=== PATIENT | female | born 1985 | race American Indian/Alaskan Native ===

== ENCOUNTER 2016-10-01 19:54 | Emergency (ER) | payer MEDICAID ==
--- NOTE | 2016-10-01 20:55 | Emergency Department Report ---
HPI - General Chief Complaint: Upper Respiratory Infection Time Seen by Provider: 10/01/16 20:47 - HPI HPI: Patient here reports that she has cough and flulike symptoms for 2 days. She says she took Tylenol cold and flu yesterday with no relief. Denies any fever. Reports body aches at 5 out of 10. Denies any nausea vomiting. Denies any shortness of breath or chest pain. ED Past Medical Hx - Past Medical History Previous Medical History?: Yes - Surgical History Past Surgical History?: Yes Additional Surgical History: hernia repair - Family History Family history: no significant - Social History Smoking Status: Never Smoker Substance Use Type: Alcohol, Non Opiate Pain - Medications Home Medications: Home Medications Medication Instructions Recorded Confirmed Last Taken Type Doxylamine/Pyridoxine HCl 1 each PO Q6HR PRN #30 tablet. 02/14/16 Unknown Rx [Dicarsalan Dr 10-10 mg Tablet] Sonia Root [Sonia] 250 mg PO QID PRN #30 capsule 02/14/16 Unknown Rx Oseltamivir [Tamiflu] 75 mg PO BID #10 cap 10/01/16 Unknown Rx guaiFENesin/CODEINE [Robitussin AC] 10 ml PO Q6H PRN #200 oral.liqd 10/01/16 Unknown Rx ED Review of Systems ROS: Stated complaint: COUGH Other details as noted in HPI Comment: All other systems reviewed and negative Constitutional: chills. denies: fever, weakness Eyes: denies: eye pain ENT: congestion. denies: ear pain, throat pain Respiratory: cough. denies: shortness of breath, SOB with exertion, SOB at rest , stridor, wheezing Cardiovascular: denies: chest pain, palpitations, edema, syncope Gastrointestinal: denies: abdominal pain, nausea, diarrhea, constipation Musculoskeletal: arthralgia. denies: back pain, joint swelling Skin: denies: rash Neurological: headache. denies: numbness, paresthesias, confusion, abnormal gait, vertigo Physical Exam - Physical Exam Vital Signs: Vital Signs 10/01/16 20:01 Temperature 98.5 F Pulse Rate 106 H Respiratory 18 Rate Blood Pressure 138/100 O2 Sat by Pulse 100 Oximetry General: This is a 31-year-old female well-nourished well-developed nontoxic in appearance. Physical Exam: Head: Normocephalic atraumatic Mouth: Moist, no pharyngeal exudate or erythema. Uvula is midline and oral airway is patent. No gingival enlargement or dental tenderness. No facial swelling. No peritonsillar abscesses. Neck: Supple, no C-spine tenderness, no tracheal deviation. Nontender to palpate. no adenopathy Ears: Bilateral TMs congested without erythema .bilateral EAC without any redness swelling or drainage Eyes: Bilateral pupils equal and reactive to light, bilateral EOM intact. Bilateral sclera and conjunctiva without injection. Normal accommodation Nose: Mucosa moist, positive congestion with erythema. Positive clear drainage. maxillary and frontal sinus non-tender to palpate. Lungs: clear to auscultate bilaterally no rhonchi wheezes or rales. Normal work of breathing extremity; No CCE. +2 pulses. No neurovascular compromise Cardiovascular: S1-S2, mild tachycardia 106, regular rhythm. No murmurs. Skin: clean Dry and intact no rash no lesions Psych: Normal mood and behavior ED Course Vital Signs 10/01/16 20:01 Temperature 98.5 F Pulse Rate 106 H Respiratory 18 Rate Blood Pressure 138/100 O2 Sat by Pulse 100 Oximetry - Reevaluation(s) Reevaluation #1: 10/01/16 22:30 Patient received Decadron 8 mg IM and emergency room. ED Medical Decision Making - Lab Data Influenza A positive - Medical Decision Making ED course: I discussed results of flu test with patient and informed her that she is positive for influenza A. I discussed treatment plan and she wants to take Tamiflu. Patient discharged home with prescription for Tamiflu and guaifenesin with codeine. She says she has Motrin at home so she will take that for bodyache. Critical care attestation.: If time is entered above; I have spent that time in minutes in the direct care of this critically ill patient, excluding procedure time. ED Disposition Clinical Impression: Influenza A, Cough Arthralgia Qualifiers: Joint pain location: unspecified Qualified Code(s): M25.50 - Pain in unspecified joint Disposition: DISCHARGED TO HOME OR SELFCARE Is pt being admited?: No Does the pt Need Aspirin: No Condition: Stable Instructions: Influenza (ED), Acute Cough (ED) Additional Instructions: Please rest. Take vitamin C and drink plenty of fluid. Please practice good hand hygiene. Please take medication as prescribed Cough medicine can cause drowsiness so please do not drive or operate any heavy machinery while taking this medication. Prescriptions: guaiFENesin/CODEINE [Robitussin AC] 10 ml PO Q6H PRN #200 oral.liqd PRN Reason: Cough Oseltamivir [Tamiflu] 75 mg PO BID #10 cap Referrals: PRIMARY CARE, [Primary Care Provider] - 3-5 Days Forms: Work/School Release Form(ED)
[2016-10-01] MEDS ORDERED: DECADRON IM STA (21:06)
[2016-10-02 01:47] VITALS: BP 130/94
== END 2016-10-01 22:36 | disposition home or self-care (01) ==
LOC: ED 19:54
DX: J09.X2 Influenza due to identified novel influenza A virus with other respiratory manifestations (principal); M25.50 Pain in unspecified joint; R05 Cough
CPT/HCPCS: 87400; 96372; 99282; J1100

== ENCOUNTER 2018-11-15 06:49 | Emergency (ER) | payer BC ==
[2018-11-15 07:29] LABS: Basophils % (Auto) 0.5 % (0.0-1.8); Eosinophils # (Auto) 0.2 K/mm3 (0.0-0.4); Eosinophils % (Auto) 2.9 % (0.0-4.3); Hematocrit 32.1 % (30.3-42.9); Hemoglobin 10.5 gm/dl (10.1-14.3); Lymphocytes # (Auto) 2.4 K/mm3 (1.2-5.4); Lymphocytes % (Auto) 32.3 % (13.4-35.0); Mean Corpuscular HGB Conc 33 % (30-34); Mean Corpuscular Volume 81 fl (79-97); Monocytes # (Auto) 0.4 K/mm3 (0.0-0.8); Monocytes % (Auto) 4.8 % (0.0-7.3); Platelet Count 267 K/mm3 (140-440); Red Blood Count 3.94 M/mm3 (3.65-5.03); Red Cell Distribution Width 16.6 % (13.2-15.2)
[2018-11-15 07:46] LABS: BUN/Creatinine Ratio 17; Blood Urea Nitrogen 12 mg/dL (7-17); Calcium 8.3 mg/dL (8.4-10.2); Hemolysis Index 8
--- NOTE | 2018-11-15 07:58 | Emergency Department Report ---
ED Chest Pain HPI - General Chief Complaint: Chest Pain Stated Complaint: CHEST PAIN Time Seen by Provider: 11/15/18 07:49 Source: patient Mode of arrival: Ambulatory Limitations: No Limitations - History of Present Illness Initial Comments: 33-year-old female presents to ED with complaint of right-sided chest pain 4 days. Patient states pain is a dull, nonradiating pain. Denies pleuritic component. States pain is worse when she moves in certain positions. Patient denies fever, cough, shortness, leg pain, swelling. She reports vomiting this morning. 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 MD Complaint: chest pain -: days(s) (4) Pain Location: right chest Pain Radiation: none Severity: moderate Severity scale (0 -10): 7 Quality: dull Consistency: intermittent Improves With: remaining still Worsens With: palpation, movement re: vomting. denies: diaphoresis, dyspnea Other Symptoms: denies: cough, fever, leg swelling - Related Data Home Medications Medication Instructions Recorded Confirmed Last Taken Melatonin 10 mg PO QHS 08/30/18 08/31/18 08/30/18 22:00 Methimazole [Tapazole] 10 mg PO DAILY 08/30/18 08/31/18 08/30/18 08:00 Multivit-Min/FA/Lycopen/Lutein 1 each PO DAILY 08/30/18 08/31/18 08/30/18 08:00 [Centrum Silver Tablet] Propranolol HCl [Inderal LA] 60 mg PO PRN 08/30/18 08/30/18 Unknown Previous Rx's Medication Instructions Recorded Last Taken Type Methocarbamol [Robaxin-750] 750 mg PO Q6HR PRN #20 tablet 11/15/18 Unknown Rx Naproxen [Naprosyn] 500 mg PO BID #20 tablet 11/15/18 Unknown Rx Allergies Allergy/AdvReac Type Severity Reaction Status Date / Time almond Allergy Rash , Verified 08/30/18 09:18 swelling Penicillins Allergy Anaphylaxis Verified 02/14/16 10:42 Heart Score - HEART Score History: Slightly suspicious EKG: Normal Age: < 45 Risk factors: No known risk factors Troponin: < normal limit HEART Score: 0 ED Review of Systems ROS: Stated complaint: CHEST PAIN Other details as noted in HPI Comment: All other systems reviewed and negative Constitutional: denies: chills, fever Respiratory: denies: cough, shortness of breath Cardiovascular: chest pain Gastrointestinal: vomiting Musculoskeletal: other (denies leg pain or swelling) ED Past Medical Hx - Past Medical History Previous Medical History?: Yes Hx Hypertension: No (RECENT HBP , BUT NOT DX , NO MEDS) Hx HIV: No Additional medical history: hypothyroid - Surgical History Past Surgical History?: Yes Additional Surgical History: hernia repair, thyroidectomy - Social History Smoking Status: Never Smoker Substance Use Type: None - Medications Home Medications: Home Medications Medication Instructions Recorded Confirmed Last Taken Type Melatonin 10 mg PO QHS 08/30/18 08/31/18 08/30/18 22:00 History Methimazole [Tapazole] 10 mg PO DAILY 08/30/18 08/31/18 08/30/18 08:00 History Multivit-Min/FA/Lycopen/Lutein 1 each PO DAILY 08/30/18 08/31/18 08/30/18 08:00 History [Centrum Silver Tablet] Propranolol HCl [Inderal LA] 60 mg PO PRN 08/30/18 08/30/18 Unknown History Methocarbamol [Robaxin-750] 750 mg PO Q6HR PRN #20 tablet 11/15/18 Unknown Rx Naproxen [Naprosyn] 500 mg PO BID #20 tablet 11/15/18 Unknown Rx ED Physical Exam - General Limitations: No Limitations General appearance: alert, in no apparent distress - Head Head exam: Present: atraumatic, normocephalic - Eye Eye exam: Present: normal appearance - ENT ENT exam: Present: mucous membranes moist - Neck Neck exam: Present: normal inspection - Respiratory Respiratory exam: Present: normal lung sounds bilaterally, chest wall tenderness (right anterior chest wall). Absent: respiratory distress - Cardiovascular Cardiovascular Exam: Present: regular rate, normal rhythm - GI/Abdominal GI/Abdominal exam: Present: soft. Absent: distended, tenderness - Extremities Exam Extremities exam: Absent: pedal edema, calf tenderness - Neurological Exam Neurological exam: Present: alert, oriented X3 - Psychiatric Psychiatric exam: Present: normal affect, normal mood - Skin Skin exam: Present: warm, dry, intact, normal color ED Course Vital Signs 11/15/18 11/15/18 11/15/18 07:05 07:48 08:00 Temperature 98 F Pulse Rate 52 L 76 63 Respiratory 16 19 12 Rate Blood Pressure 145/78 O2 Sat by Pulse 100 99 99 Oximetry 11/15/18 11/15/18 11/15/18 08:16 08:30 08:46 Temperature Pulse Rate 64 61 58 L Respiratory 14 14 12 Rate Blood Pressure 128/95 121/80 122/75 O2 Sat by Pulse 98 100 100 Oximetry 11/15/18 11/15/18 09:00 09:15 Temperature Pulse Rate 55 L 53 L Respiratory 13 12 Rate Blood Pressure 122/85 123/73 O2 Sat by Pulse 100 99 Oximetry ED Medical Decision Making - Lab Data Result diagrams: 11/15/18 07:17 11/15/18 07:13 - EKG Data -: EKG Interpreted by Me EKG shows normal: sinus rhythm, axis, intervals, QRS complexes, ST-T waves Rate: bradycardia (rate 52) - EKG Data Interpretation: no acute changes - Radiology Data Radiology results: report reviewed, image reviewed - Medical Decision Making 33-year-old female with right chest wall pain. EKG normal, labs are un remarkable including troponin. Chest x-ray normal. Patient in no respiratory distress, denies shortness of breath, and O2 sats normal. Patient with reproducible right anterior chest wall tenderness, worse with palpation and movement. Patient given prescription for anti-inflammatory and muscle relaxer. Return precautions given. Outpatient follow-up advised. Will discharge at this time. - Differential Diagnosis chest wall pain, pneumonia, PTX Critical care attestation.: If time is entered above; I have spent that time in minutes in the direct care of this critically ill patient, excluding procedure time. ED Disposition Clinical Impression: Chest wall pain Disposition: - TO HOME OR SELFCARE Is pt being admited?: No Condition: Stable Instructions: Costochondritis (ED) Prescriptions: Naproxen [Naprosyn] 500 mg PO BID #20 tablet Methocarbamol [Robaxin-750] 750 mg PO Q6HR PRN #20 tablet PRN Reason: Spasms Referrals: PRIMARY CARE, [Referring] - 3-5 Days [facility] [Provider Group] - 3-5 Days Forms: Work/School Release Form(ED) Time of Disposition: 08:48
--- NOTE | 2018-11-15 08:42 | XRay Report ---
AP CHEST: HISTORY: chest pain AP view of the chest demonstrates a normal mediastinal and cardiac contour with clear lungs and normal bony and soft tissue structures. IMPRESSION: Unremarkable AP chest.
[2018-11-15] MEDS ORDERED: TORADOL IV ONE (08:45)
[2018-11-15 09:27] VITALS: BP 123/73
== END 2018-11-15 09:24 | disposition home or self-care (01) ==
LOC: ED 06:49
DX: R07.89 Other chest pain (principal); R11.10 Vomiting, unspecified; E03.9 Hypothyroidism, unspecified; Z88.0 Allergy status to penicillin; Z91.018 Allergy to other foods
CPT/HCPCS: 36415; 71045; 80048; 84484; 85025; 93005; 93010; 96374; 99284; J1885

== ENCOUNTER 2018-12-19 12:44 | Outpatient (CLI) | payer BC ==
[2018-12-19 13:51] LABS: Free T4 (Free Thyroxine) 1.59 ng/dL (0.76-1.46)
== END 2018-12-19 12:45 | disposition home or self-care (01) ==
LOC: LAB 12:44
PROVIDERS: ATTEND Physician Assistant
DX: E03.9 Hypothyroidism, unspecified (principal); I10 Essential (primary) hypertension
CPT/HCPCS: 36415; 84439; 84443; 84481

== ENCOUNTER 2019-01-14 10:49 | Outpatient (CLI) | payer BC ==
[2019-01-14 11:14] LABS: Basophils # (Auto) 0.1 K/mm3 (0.0-0.1); Basophils % (Auto) 0.6 % (0.0-1.8); Eosinophils # (Auto) 0.1 K/mm3 (0.0-0.4); Eosinophils % (Auto) 1.4 % (0.0-4.3); Hematocrit 35.3 % (30.3-42.9); Hemoglobin 11.2 gm/dl (10.1-14.3); Lymphocytes # (Auto) 2.4 K/mm3 (1.2-5.4); Lymphocytes % (Auto) 28.3 % (13.4-35.0); Mean Corpuscular HGB Conc 32 % (30-34); Mean Corpuscular Volume 83 fl (79-97); Monocytes # (Auto) 0.5 K/mm3 (0.0-0.8); Monocytes % (Auto) 5.3 % (0.0-7.3); Platelet Count 261 K/mm3 (140-440); Red Blood Count 4.28 M/mm3 (3.65-5.03); Red Cell Distribution Width 14.9 % (13.2-15.2)
[2019-01-14 11:31] LABS: Alanine Aminotransferase 10 units/L (7-56); Albumin 4.4 g/dL (3.9-5); BUN/Creatinine Ratio 20; Blood Urea Nitrogen 14 mg/dL (7-17); Calcium 8.7 mg/dL (8.4-10.2); HDL Cholesterol 56 mg/dL (40-59); Hemolysis Index 0; LDL Cholesterol,Direct 191 mg/dL (50-130)
[2019-01-18 15:02] LABS: Vitamin D, 25-OH, D2 11 ng/mL
== END 2019-01-14 10:50 | disposition home or self-care (01) ==
LOC: LAB 10:49
PROVIDERS: ATTEND Internal Medicine
DX: R79.89 Other specified abnormal findings of blood chemistry (principal); R68.89 Other general symptoms and signs; E78.5 Hyperlipidemia, unspecified; R94.6 Abnormal results of thyroid function studies; R73.03 Prediabetes; E55.9 Vitamin D deficiency, unspecified; D51.9 Vitamin B12 deficiency anemia, unspecified; D52.9 Folate deficiency anemia, unspecified; I10 Essential (primary) hypertension
CPT/HCPCS: 36415; 80053; 80061; 82306; 82607; 82747; 83036; 84443; 85025

== ENCOUNTER 2019-02-06 15:32 | Outpatient (CLI) | payer BC | END 2019-02-06 15:33 | disposition home or self-care (01) | LOC: LAB 15:32 | PROVIDERS: ATTEND Physician Assistant | DX: E03.9 Hypothyroidism, unspecified (principal); I10 Essential (primary) hypertension | CPT/HCPCS: 36415; 84439; 84443; 84480 ==

== ENCOUNTER 2019-03-27 12:49 | Outpatient (CLI) | payer BC ==
[2019-03-27 13:16] LABS: Hematocrit 31.2 % (30.3-42.9); Hemoglobin 10.2 gm/dl (10.1-14.3); Mean Corpuscular HGB Conc 33 % (30-34); Mean Corpuscular Volume 80 fl (79-97); Platelet Count 292 K/mm3 (140-440); Red Blood Count 3.92 M/mm3 (3.65-5.03); Red Cell Distribution Width 16.2 % (13.2-15.2)
[2019-03-27 13:32] LABS: Alanine Aminotransferase 9 units/L (7-56); Albumin 4.4 g/dL (3.9-5); BUN/Creatinine Ratio 16; Blood Urea Nitrogen 14 mg/dL (7-17); Calcium 8.5 mg/dL (8.4-10.2); Hemolysis Index 1
[2019-03-27 13:50] LABS: Free T4 (Free Thyroxine) 1.44 ng/dL (0.76-1.46)
== END 2019-03-27 12:50 | disposition home or self-care (01) ==
LOC: LAB 12:49
PROVIDERS: ATTEND Physician Assistant
DX: E03.9 Hypothyroidism, unspecified (principal); I10 Essential (primary) hypertension
CPT/HCPCS: 36415; 80053; 84439; 84443; 84481; 85027

== ENCOUNTER 2019-10-04 12:18 | Outpatient (CLI) | payer BC ==
[2019-10-04 12:36] LABS: Basophils # (Auto) 0.1 K/mm3 (0.0-0.1); Basophils % (Auto) 0.6 % (0.0-1.8); Eosinophils # (Auto) 0.1 K/mm3 (0.0-0.4); Eosinophils % (Auto) 1.1 % (0.0-4.3); Hematocrit 34.6 % (30.3-42.9); Lymphocytes # (Auto) 2.4 K/mm3 (1.2-5.4); Lymphocytes % (Auto) 27.2 % (13.4-35.0); Mean Corpuscular HGB Conc 32 % (30-34); Mean Corpuscular Volume 81 fl (79-97); Monocytes # (Auto) 0.5 K/mm3 (0.0-0.8); Monocytes % (Auto) 5.6 % (0.0-7.3); Platelet Count 272 K/mm3 (140-440); Red Blood Count 4.29 M/mm3 (3.65-5.03); Red Cell Distribution Width 16.1 % (13.2-15.2)
[2019-10-04 12:55] LABS: Alanine Aminotransferase 9 units/L (7-56); Albumin 4.5 g/dL (3.9-5); BUN/Creatinine Ratio 13; Blood Urea Nitrogen 9 mg/dL (7-17); Chol/HDL Ratio 3.77 %; HDL Cholesterol 57 mg/dL (40-59); Hemolysis Index 4; LDL Cholesterol,Direct 157 mg/dL (50-130)
== END 2019-10-04 12:19 | disposition home or self-care (01) ==
LOC: LAB 12:18
PROVIDERS: ATTEND Internal Medicine
DX: Z00.00 Encounter for general adult medical examination without abnormal findings (principal); R79.89 Other specified abnormal findings of blood chemistry; R68.89 Other general symptoms and signs; D58.2 Other hemoglobinopathies; E03.8 Other specified hypothyroidism; E55.9 Vitamin D deficiency, unspecified
CPT/HCPCS: 36415; 80053; 80061; 82306; 83036; 84443; 85025

== ENCOUNTER 2020-06-12 11:13 | Outpatient (CLI) | payer OTHER ==
[2020-06-12 12:16] LABS: Basophils # (Auto) 0.1 K/mm3 (0.0-0.1); Basophils % (Auto) 0.6 % (0.0-1.8); Eosinophils # (Auto) 0.2 K/mm3 (0.0-0.4); Eosinophils % (Auto) 1.8 % (0.0-4.3); Hematocrit 36.2 % (30.3-42.9); Hemoglobin 11.9 gm/dl (10.1-14.3); Lymphocytes # (Auto) 2.7 K/mm3 (1.2-5.4); Lymphocytes % (Auto) 26.1 % (13.4-35.0); Mean Corpuscular HGB Conc 33 % (30-34); Mean Corpuscular Volume 86 fl (79-97); Monocytes # (Auto) 0.6 K/mm3 (0.0-0.8); Monocytes % (Auto) 5.6 % (0.0-7.3); Platelet Count 263 K/mm3 (140-440); Red Blood Count 4.22 M/mm3 (3.65-5.03); Red Cell Distribution Width 16.7 % (13.2-15.2)
== END 2020-06-12 11:14 | disposition home or self-care (01) ==
LOC: LAB 11:13
PROVIDERS: ATTEND Plastic Surgery
DX: Z13.29 Encounter for screening for other suspected endocrine disorder (principal); E03.9 Hypothyroidism, unspecified; Z13.9 Encounter for screening, unspecified
CPT/HCPCS: 36415; 84443; 85025